=== PATIENT | female | born 1970 | race Two or more races ===

== ENCOUNTER 2021-09-30 16:03 | Emergency (ER) | payer OTHER ==
[~2021-09-30] VITALS: Ht 144.8 cm; Wt 59.9 kg
[2021-09-30 23:25] VITALS: BP 151/85
== END 2021-10-01 01:27 | disposition home or self-care (01) ==
LOC: ER 16:06 → EDBD 16:06 → ER 10-01 01:13
DX: S29.011A Strain of muscle and tendon of front wall of thorax, initial encounter (principal); Z88.1 Allergy status to other antibiotic agents; X58.XXXA Exposure to other specified factors, initial encounter; Y93.89 Activity, other specified; Y92.89 Other specified places as the place of occurrence of the external cause; Y99.8 Other external cause status
CPT/HCPCS: 71101; 93005

== ENCOUNTER 2022-11-30 13:46 | Inpatient (IN) | payer OTHER ==
[~2022-11-30] VITALS: Ht 144.8 cm; Wt 58.3 kg
[2022-11-30] MEDS ORDERED: NITROGLYCERIN 0.4 MG SL TAB SL ONE (14:45)
[2022-11-30] MEDS ORDERED: ASPirin 325 MG TAB PO ONE (14:45)
[2022-11-30 15:03] LABS: Basophils # (auto) 0 10 ^3/uL (0-0.2); Basophils % (auto) 0.3 % (0.0-2.0); Eosinophils # (auto) 0 10 ^3/uL (0-0.8); Eosinophils % (auto) 0.3 % (0.0-7.0); Hematocrit 42.3 % (36.0-46.0); Hemoglobin 14.8 g/dL (12.2-16.2); Lymphocytes # (auto) 0.8 10 ^3/uL (0.4-5.4); Lymphocytes % (auto) 12.7 % (10.0-50.0); Mean Corpuscular Volume 91.5 fL (80.0-100.0); Monocytes # (auto) 0.5 10 ^3/uL (0-1.3); Monocytes % (auto) 7.6 % (0.0-12.0); Neutrophils # (auto) 5.1 10 ^3/uL (1.6-8.6); Neutrophils % (auto) 79.1 % (37.0-80.0); Red Blood Cells 4.62 10^6/uL (4.0-5.20); Red Cell Distribution Width 12.5 % (11.8-14.3); White Blood Cell 6.4 10^3/uL (4.4-10.8)
[2022-11-30 15:18] LABS: Albumin 3.8 g/dL (3.4-5.0); Calcium 9.1 mg/dL (8.5-10.1)
[2022-11-30 15:21] LABS: BUN/Creatinine Ratio 12.7 (10.0-20.0); Bilirubin, Total 0.4 mg/dL (0.2-1.0)
[2022-11-30] MEDS ORDERED: HYDROcodone-ACET 5/325MG TAB PO PRN (16:45)
[2022-11-30] MEDS ORDERED: NITROGLYCERIN 0.4 MG SL TAB SL PRN (16:45)
[2022-11-30] MEDS ORDERED: MORPHINE SULFATE INJ 2 MG/ml SYRG IV PRN ×2 (16:45)
[2022-11-30] MEDS ORDERED: ACETAMINOPHEN 325 MG TAB PO PRN (16:45)
[2022-11-30] MEDS ORDERED: HYDR12.56 PO (17:05)
[2022-11-30 17:10] LABS: Urine Bacteria NONE SEEN /hpf (None Seen); Urine Blood Negative /uL (Negative); Urine Specific Gravity 1.009 (1.001-1.035); Urine WBC <1 /hpf (0 - 5)
[2022-11-30 19:40] LABS: Cholesterol 150 mg/dL (< 200)
[2022-11-30 19:42] LABS: HDL Cholesterol 52 mg/dL (40-59); LDL Cholesterol 85 mg/dL (< 100); Triglycerides 176 mg/dL (< 150)
[2022-11-30 19:50] LABS: Alcohol, Urine < 3.0 mg/dL (0-10); Amphetamine Screen, Urine NEGATIVE (NEGATIVE); Barbiturate Scree,Urine NEGATIVE (NEGATIVE); Benzodiazephine Screen, Urine NEGATIVE (NEGATIVE); Cannabinoid Screen, Urine NEGATIVE (NEGATIVE); Cocaine Screen, Urine NEGATIVE (NEGATIVE); Opiate Scree,Urine NEGATIVE (NEGATIVE); Phencyclidine Screen, Urine NEGATIVE (NEGATIVE)
[2022-11-30] MEDS: ATORVASTATIN 20 MG TAB PO SCH (22:00)
[2022-12-01] MEDS: SODIUM CHLORIDE 0.9% 1,000 ML IV SCH ×3 (01:00→09:00)
[2022-12-01] MEDS: ATORVASTATIN 20 MG TAB PO SCH (01:10)
[2022-12-01 05:13] LABS: Basophils # (auto) 0 10 ^3/uL (0-0.2); Basophils % (auto) 0.4 % (0.0-2.0); Eosinophils # (auto) 0 10 ^3/uL (0-0.8); Eosinophils % (auto) 0.8 % (0.0-7.0); Hematocrit 37.2 % (36.0-46.0); Hemoglobin 13.1 g/dL (12.2-16.2); Lymphocytes % (auto) 51.1 % (10.0-50.0); Mean Corpuscular Hemoglobin 32.4 pg (28.0-32.0); Mean Corpuscular Hgb Conc. 35.2 g/dL (32.0-36.0); Monocytes # (auto) 0.6 10 ^3/uL (0-1.3); Monocytes % (auto) 14.9 % (0.0-12.0); Neutrophils # (auto) 1.3 10 ^3/uL (1.6-8.6); Neutrophils % (auto) 32.8 % (37.0-80.0); Nucleated Red Blood Cells % 0.1 %; Red Blood Cells 4.04 10^6/uL (4.0-5.20); Red Cell Distribution Width 12.2 % (11.8-14.3)
[2022-12-01 05:29] LABS: Calcium 8.4 mg/dL (8.5-10.1); Potassium 3.3 mmol/L (3.5-5.1)
[2022-12-01 05:34] LABS: Albumin 3.4 g/dL (3.4-5.0); BUN/Creatinine Ratio 17.3 (10.0-20.0); Bilirubin, Total 0.4 mg/dL (0.2-1.0); Total Protein 7.2 g/dL (6.4-8.2)
[2022-12-01] MEDS ORDERED: ADENOSINE 49 MG in GIVE UN-DILUTED 0 ML IV STA (08:03)
[2022-12-01 08:55] VITALS: BP 122/72
[2022-12-01] MEDS ORDERED: POTASSIUM EFFERVESENT TAB 25 MEQ PO ONE (09:30)
[2022-12-01] MEDS ORDERED: ASPirin 81 mg TAB PO SCH (10:00)
[2022-12-01] MEDS ORDERED: ENOXAPARIN SOD 40 MG/0.4 ML SYRINGE SC SCH (10:00)
[2022-12-01] MEDS ORDERED: HCTZ 25 MG TAB PO SCH (10:00)
[2022-12-01] MEDS ORDERED: AZITTAB PO (15:32)
[2022-12-01] MEDS ORDERED: ALBUAER3 IN (15:32)
[2022-12-01 15:39] VITALS: BP 124/66
== END 2022-12-01 16:05 | disposition home or self-care (01) | DRG 202 ==
LOC: ER 13:46 → TELE 16:53 → UNDODEPER 12-01 15:52 → TELE 12-01 16:05
PROVIDERS: ADMIT Registered Nurse; ATTEND Nurse Practitioner Acute Care
DX: J40 Bronchitis, not specified as acute or chronic (principal); N17.9 Acute kidney failure, unspecified; E78.5 Hyperlipidemia, unspecified; E87.6 Hypokalemia; I10 Essential (primary) hypertension; I25.10 Atherosclerotic heart disease of native coronary artery without angina pectoris; J10.1 Influenza due to other identified influenza virus with other respiratory manifestations; R73.03 Prediabetes; F32.A Depression, unspecified; K21.9 Gastro-esophageal reflux disease without esophagitis; Z20.822 Contact with and (suspected) exposure to COVID-19; I25.2 Old myocardial infarction; Z82.49 Family history of ischemic heart disease and other diseases of the circulatory system; Z88.1 Allergy status to other antibiotic agents
CPT/HCPCS: 36415; 71046; 78452; 80053; 80061; 80307; 81001; 83036; 84443; 84484; 85025; 85379; 87426; 87804; 93005; 93017; 93306; 96365; 96372; G0378; J0153